=== PATIENT | female | born 1955 | race Two or more races ===

== ENCOUNTER 2017-04-17 12:45 | Emergency (ER) | payer OTHER ==
[~2017-04-17] VITALS: Ht 167.6 cm; Wt 63.5 kg
--- NOTE | 2017-04-17 14:51 | Diagnostic Imaging Report ---
Indication: Cough Comparison: None A single view chest radiograph was obtained. Findings: There is apparent infiltrate in the right upper lobe. Please correlate for pneumonia. Heart size is normal. Aorta is ectatic. Bones are osteopenic. IMPRESSION: Suspected pneumonia right upper lobe
[2017-04-17] MEDS ORDERED: PROMETHAZINE-C118 M1 ORAL ×2 (15:12→15:23)
[2017-04-17] MEDS ORDERED: ZITHROMAX250 MG ORAL ×2 (15:12→15:23)
[2017-04-17] MEDS ORDERED: IBUPROFEN600 MG ORAL ×2 (15:12→15:23)
[2017-04-17 15:34] VITALS: BP 130/80
[2017-04-17 15:35] VITALS: BP 124/70
--- NOTE | 2017-04-17 22:08 | Emergency Room Report ---
History of Present Illness General Chief Complaint: Upper Respiratory Illness Source: Patient (MINA GUERRA) Present Illness HPI The patient is a 61-year-old female presenting for productive cough and fever for the past week. Symptoms have been worsening. She admits to 40 year history of smoking. She denies any medical history. She has not tried any medications. Denies any other symptoms including hemoptysis, vomiting, shortness of breath, chest pain (MINA GUERRA) Allergies: Coded Allergies: No Known Allergies (Unverified , 04/17/17) Patient History Past Medical History: see triage record Pertinent Family History: none Reviewed Nursing Documentation: PMH: Agreed, PSxH: Agreed (MINA GUERRA) Nursing Documentation-PMH Past Medical History: No Stated History (MINA GUERRA) Review of Systems All Other Systems: negative except mentioned in HPI (MINA GUERRA) Physical Exam Vital Signs Date Time Temp Pulse Resp B/P (MAP) Pulse Ox O2 Delivery O2 Flow Rate FiO2 04/17/17 12:51 100.4 130 22 124/70 94 Room Air Sp02 EP Interpretation: reviewed, normal General Appearance: no apparent distress, alert, GCS 15, non-toxic Head: normocephalic, atraumatic Eyes: bilateral eye normal inspection, bilateral eye PERRL ENT: hearing grossly normal, normal pharynx, no angioedema, normal voice, uvula midline Neck: full range of motion, supple/symm/no masses Respiratory: chest non-tender, lungs clear, normal breath sounds, speaking full sentences Cardiovascular #1: regular rate, rhythm, no edema Genitourinary: normal inspection, no CVA tenderness Musculoskeletal: back normal, gait/station normal, normal range of motion, non- tender Neurologic: alert, oriented x3, responsive, motor strength/tone normal, sensory intact, speech normal Psychiatric: judgement/insight normal, memory normal, mood/affect normal, no suicidal/homicidal ideation Skin: normal color, no rash, warm/dry, well hydrated (MINA GUERRA) Medical Decision Making PA Attestation Dr. Swartz is my supervising physician. Patient management was discussed with my supervising physician (TERZIAN,MINA P.A.) Diagnostic Impression: Primary Impression: Pneumonia Qualified Codes: J18.1 - Lobar pneumonia, unspecified organism ER Course The patient is a 61-year-old female presenting for productive cough and fever for the past week Differential diagnosis include but not limited to pharyngitis, sinusitis, COPD, AOM, bronchitis, PNA PE: Febrile 100.4F, No apparent distress. No TTP over maxillary or frontal sinuses. Lungs: CTA bilat. No accessory muscle use. No resp distress Heart: RRR, no abnormal heart sounds Ears: external auditory canal clear. Non erythematous. Bilat TM intact. Cone of light present bilat. No bulging of TM. No serous fluid seen. no nasal D/C No cervical lymphad No tonsillar exudate. Uvula midline.Oropharynx non erythematous Chest x-ray reveals Infiltrate of right upper lobe The patient will be treated for suspected pneumonia with azithromycin. She will followup with primary doctor. ER precautions are given (MINA GUERRA P.A.) ER Course I have reviewed the PA's interpretation of Xray results and agree with findings. (Randy Swartz M.D.) Chest X-Ray Diagnostic Results Chest X-Ray Diagnostic Results : Chest X-Ray Ordered: Yes # of Views/Limited/Complete: 1 View Indication: Other - cough PA Xray: Interpretation reviewed, by supervising MD, and agrees with findings. Interpretation: no pneumothorax, no acute cardiopulmonary disease, other - RUL infiltrate Impression: Other - PNA of RUL Electronically Signed by: Mina Guerra PA-C (MINA GUERRA P.A.) Last Vital Signs Date Time Temp Pulse Resp B/P (MAP) Pulse Ox O2 Delivery O2 Flow Rate FiO2 04/17/17 15:35 100.4 16 124/70 94 Room Air 04/17/17 15:34 86 Status: improved (MINA GUERRA P.A.) Disposition: HOME, SELF-CARE Condition: Improved Scripts Ibuprofen* (MOTRIN*) 600 Mg Tablet 600 MG ORAL Q8H Y for For Pain, #30 TAB 0 Refills Prov: MINA GUERRA P.A. 04/17/17 Azithromycin* (ZITHROMAX*) 250 Mg Tablet 250 MG ORAL DAILY, #6 TAB 0 Refills Take two tables once daily for 1 day, then one tablet once daily for 4 days. Prov: MINA GUERRA 04/17/17 Codeine/Promethazine Hcl* (PROMETHAZINE-CODEINE SYRUP*) 118 Ml Syrup 5 ML ORAL Q6H Y for For Cough, #118 ML 0 Refills Prov: MINA GUERRA 04/17/17 Patient Instructions: Community-Acquired Pneumonia, Adult Additional Instructions: I discussed my findings with the patient. All questions and concerns have been answered. Treatment and medication compliance have been addressed. I advised the patient that they need to follow up with PMD in 3-5 days. Return to ED if symptoms worsen, new symptoms arise, or if needed for any reason. Patient verbalized understanding of discharge instructions. MINA GUERRA Apr 17, 2017 22:08 Randy Swartz M.D. Apr 19, 2017 21:13
== END 2017-04-17 15:36 | disposition home or self-care (01) ==
LOC: EMR 13:35
DX: J18.1 Lobar pneumonia, unspecified organism (principal)
CPT/HCPCS: 71010; 86710; 99284